=== PATIENT | female | born 1990 | race Caucasian/White ===

== ENCOUNTER 2020-04-26 12:48 | Emergency (ER) | payer BC, MEDICAID, OTHER, SELFPAY ==
--- NOTE | 2020-04-26 13:13 | EDM.PDOC ---
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 She said her LNMP was 2 weeks ago and she would be 10 days early for her next period. She says the bleeding is more heavy then normal. She may be even though she has been using protection. She has some mild cramping at times. She has no fever, chills, cough, congestion, chest pain, shortness of breath, abdominal pain, nausea or vomiting. She is . Onset: Gradual Duration: Day(s): Location: Reports: Pelvis Quality: Reports: Other (cramping) Severity: Mild Improves with: Reports: None Worsens with: Reports: None Associated Symptoms: Reports: No Other Symptoms - Related Data Allergies Allergy/AdvReac Type Severity Reaction Status Date / Time Sulfa (Sulfonamide Allergy Rash Verified 04/26/20 12:57 Antibiotics) Home Meds: Home Meds Albuterol Sulfate [Albuterol Sulfate Hfa] 2 puff INH Q4H PRN 04/26/20 [History] medroxyPROGESTERone [Provera] 10 mg PO DAILY #10 tab 04/26/20 [Rx] Past Medical History Genitourinary History: Reports: Other (See Below) 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: Psychiatric History: Reports: Depression - Past Surgical History Other HEENT Surgeries/Procedures: [place] teeth removal Social & Family History - Family History Family Medical History: Noncontributory - Tobacco Use Smoking Status *Q: Never Smoker - Caffeine Use Caffeine Use: Reports: Coffee - Recreational Drug Use Recreational Drug Use: No ED ROS GENERAL - Review of Systems Review Of Systems: See Below Constitutional: Reports: No Symptoms HEENT: Reports: No Symptoms Respiratory: Reports: No Symptoms Cardiovascular: Reports: No Symptoms Endocrine: Reports: No Symptoms GI/Abdominal: Reports: No Symptoms : Reports: Other (Vaginal bleeding and pelvic pain) ED EXAM, GI/ABD - Physical Exam Exam: See Below Exam Limited By: No Limitations General Appearance: Alert, No Apparent Distress Ears: Normal External Exam Nose: Normal Inspection Head: Atraumatic, Normocephalic Neck: Normal Inspection Respiratory/Chest: No Respiratory Distress, Lungs Clear, Normal Breath Sounds Cardiovascular: Regular Rate, Rhythm, No Edema, No Murmur GI/Abdominal Exam: Soft, Non-Tender, No Organomegaly, No Mass Extremities: Normal Inspection Neurological: Alert, Oriented Course - Vital Signs Last Recorded V/S: Last Vital Signs Temp 98.2 F 04/26/20 12:54 Pulse 99 04/26/20 12:54 Resp 16 04/26/20 12:54 BP 153/92 H 04/26/20 12:54 Pulse Ox 99 04/26/20 12:54 - Orders/Labs/Meds Orders: Active Orders 24 hr Category Date Time Status Pelvic Exam, Set Up [RC] ASDIRECTED Care 04/26/20 13:08 Active ABO/RH TYPE [BBK] Stat Lab 04/26/20 13:17 Received Labs: Laboratory Tests 04/26/20 04/26/20 Range/Units 13:17 13:17 WBC 8.91 (3.98-10.04) K/mm3 RBC 4.48 (3.98-5.22) M/mm3 Hgb 13.3 D (11.2-15.7) gm/dl Hct 39.5 (34.1-44.9) % MCV 88.2 (79.4-94.8) fl MCH 29.7 (25.6-32.2) pg MCHC 33.7 (32.2-35.5) g/dl RDW Std Deviation 47.1 H (36.4-46.3) fL Plt Count 326 (182-369) K/mm3 MPV 10.1 (9.4-12.3) fl Neut % (Auto) 63.5 (34.0-71.1) % Lymph % (Auto) 28.6 (19.3-51.7) % [place] % (Auto) 5.2 (4.7-12.5) % Eos % (Auto) 1.9 (0.7-5.8) Baso % (Auto) 0.6 (0.1-1.2) % Neut # (Auto) 5.66 (1.56-6.13) K/mm3 Lymph # (Auto) 2.55 (1.18-3.74) K/mm3 [place] # (Auto) 0.46 H (0.24-0.36) K/mm3 Eos # (Auto) 0.17 (0.04-0.36) K/mm3 Baso # (Auto) 0.05 (0.01-0.08) K/mm3 HCG, Qual Negative (NEGATIVE) - Re-Assessments/Exams Free Text/Narrative Re-Assessment/Exam: 04/26/20 13:13 I will do an HCG, labs and a pelvic exam. 04/26/20 14:02 Her CBC looks good. Her HCG is negative. I was going to do a pelvic exam but she did not want that done. I will get her on some provera for the bleeding. Departure - Departure Time of Disposition: 14:05 Disposition: Home, Self-Care 01 Condition: Good Clinical Impression: Vaginal bleeding - Discharge Information *PRESCRIPTION DRUG MONITORING PROGRAM REVIEWED*: Not Applicable *COPY OF PRESCRIPTION DRUG MONITORING REPORT IN PATIENT LIAN: Not Applicable Prescriptions: medroxyPROGESTERone [Provera] 10 mg PO DAILY #10 tab Referrals: Gladis Zapata BOILER TENDER [Primary Care Provider] - 1 Week Forms: ED Department Discharge Additional Instructions: Take the provera daily for 10 days. Please return if the bleeding is worse. Follow up with your doctor. Sepsis Event Note (ED) - Evaluation Sepsis Screening Result: No Definite Risk - Focused Exam Vital Signs: Vital Signs Temp Pulse Resp BP Pulse Ox 04/26/20 12:54 98.2 F 99 16 153/92 H 99 - My Orders Last 24 Hours: My Active Orders 04/26/20 13:08 Pelvic Exam, Set Up [] ASDIRECTED 04/26/20 13:17 ABO/RH TYPE [BBK] Stat - Assessment/Plan Last 24 Hours: My Active Orders 04/26/20 13:08 Pelvic Exam, Set Up [RC] ASDIRECTED 04/26/20 13:17 ABO/RH TYPE [BBK] Stat
== END 2020-04-26 14:15 | disposition home or self-care (01) ==
LOC: JD.ED 12:48
DX: N93.9 Abnormal uterine and vaginal bleeding, unspecified (principal); Z88.2 Allergy status to sulfonamides
CPT/HCPCS: 36415; 84703; 85025; 86900; 86901; 99283; 99284

== ENCOUNTER 2020-05-30 07:37 | Emergency (ER) | payer MEDICAID ==
--- NOTE | 2020-05-30 08:05 | EDM.PDOC ---
ED HPI GENERAL MEDICAL PROBLEM - General Chief Complaint: Genitourinary Problem Stated Complaint: BLOOD IN URINE Time Seen by Provider: 05/30/20 07:57 - History of Present Illness INITIAL COMMENTS - FREE TEXT/NARRATIVE: 30-year-old female presents to the emergency room with blood in her urine. On Monday now 3 days ago the patient had some discomfort with urination. Yesterday she noticed bright red blood in her urine. This has improved but is still pinkish in color. She is certain is not vaginal bleeding however she is late for her period. A month ago the patient was treated with medroxyprogesterone. She is followed up with her primary provider who is discussing starting her on control pills. The patient had some leftover doxycycline and took 1 of these. 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 Denies: Flank Pain ED EXAM, GI/ABD - Physical Exam Exam: See Below Exam Limited By: No Limitations General Appearance: Alert, No Apparent Distress Respiratory/Chest: No Respiratory Distress, Lungs Clear, Normal Breath Sounds Cardiovascular: Regular Rate, Rhythm, No Edema, No Murmur GI/Abdominal Exam: Normal Bowel Sounds, Soft, Other (She has a mild discomfort in the suprapubic area otherwise abdominal exam is unremarkable). No: Guarding, Rigid, Rebound Back Exam: Normal Inspection. No: CVA Tenderness (L), CVA Tenderness (R) Course - Vital Signs Last Recorded V/S: Last Vital Signs Temp 36.3 C 05/30/20 07:52 Pulse 100 05/30/20 07:52 Resp 13 05/30/20 07:52 BP 157/82 H 05/30/20 07:52 Pulse Ox 99 05/30/20 07:52 - Orders/Labs/Meds Orders: Active Orders 24 hr Category Date Time Status CULTURE URINE [RM] Stat Lab 05/30/20 08:31 Ordered CULTURE URINE [RM] Urgent Lab 05/30/20 07:50 Stop Req Labs: Laboratory Tests 05/30/20 05/30/20 Range/Units 07:50 07:50 Urine Color [place] H (Yellow) Urine Appearance Slt cloudy H (Clear) Urine pH 6.5 (5.0-8.0) Ur Specific Era 1.015 (1.005-1.030) Urine Protein 2+ H (Negative) Urine Glucose (UA) Negative (Negative) Urine Ketones Negative (Negative) Urine Occult Blood 3+ H (Negative) Urine Nitrite Negative (Negative) Urine Bilirubin Negative (Negative) Urine Urobilinogen 0.2 (0.2-1.0) Ur Leukocyte Esterase 3+ H (Negative) Urine RBC Too numerous to cnt H (0-5) /hpf Urine WBC >100 H (0-5) /hpf Ur Squamous Epith Cells 0-5 (0-5) /hpf Urine Bacteria Moderate H (FEW) /hpf Urine Mucus Not seen (FEW) /hpf Urine HCG, Qual Negative (NEGATIVE) - Re-Assessments/Exams Free Text/Narrative Re-Assessment/Exam: 05/30/20 08:41 UA can be suggestive of developing UTI or hemorrhagic cystitis. Urine culture is been set up. It is unclear how the doxycycline she took has affected the situation she will be empirically started on Macrobid and a urine culture is set up. I did discuss this with the lab. 05/30/20 09:00 hCG is negative will discharge Departure - Departure Time of Disposition: 09:00 Disposition: Home, Self-Care 01 Clinical Impression: UTI, Urinary tract infectious disease - Discharge Information Prescriptions: Nitrofurantoin Monohyd/M-Cryst [Macrobid 100 mg Capsule] 100 mg PO BID #14 capsule Referrals: Gladis Zapata NP [Primary Care Provider] - Forms: ED Department Discharge Additional Instructions: Return to the emergency room with any questions problems or worsening symptoms. Take the antibiotics as directed. You have been started on Macrobid, this is an antibiotic for urinary tract infections take them until they are all gone. Follow-up with your regular healthcare provider 3 or 4 days after you finish the antibiotics. Sepsis Event Note (ED) - Evaluation Sepsis Screening Result: No Definite Risk - Focused Exam Vital Signs: Vital Signs Temp Pulse Resp BP Pulse Ox 05/30/20 07:52 36.3 C 100 13 157/82 H 99 - My Orders Last 24 Hours: My Active Orders 05/30/20 07:50 CULTURE URINE [RM] Urgent 05/30/20 08:31 CULTURE URINE [RM] Stat - Assessment/Plan Last 24 Hours: My Active Orders 05/30/20 07:50 CULTURE URINE [RM] Urgent 05/30/20 08:31 CULTURE URINE [RM] Stat
== END 2020-05-30 09:12 | disposition home or self-care (01) ==
LOC: JD.ED 07:37
DX: N39.0 Urinary tract infection, site not specified (principal); R31.9 Hematuria, unspecified; Z88.2 Allergy status to sulfonamides
CPT/HCPCS: 81001; 81025; 87086; 87186; 99283

== ENCOUNTER 2022-06-10 16:45 | Emergency (ER) | payer MEDICAID, OTHER ==
[2022-06-10] MEDS ORDERED: Sodium Chloride 0.9% 10 ML Syringe FLUSH PRN (17:29)
[2022-06-10 18:15] LABS: ESTIMATED GFR 87 mL/min (>60)
== END 2022-06-10 19:00 | disposition home or self-care (01) ==
LOC: JD.ED 16:45
DX: R07.89 Other chest pain (principal); Z88.2 Allergy status to sulfonamides; Z79.899 Other long term (current) drug therapy
CPT/HCPCS: 36415; 71045; 71045-26; 80053; 83735; 83880; 84484; 85025; 85379; 85610; 85730; 93005; 93010; 99284; 99285

== ENCOUNTER 2023-04-06 05:11 | Emergency (ER) | payer OTHER | END 2023-04-06 06:16 | disposition home or self-care (01) | LOC: JD.ED 05:11 | DX: S93.401A Sprain of unspecified ligament of right ankle, initial encounter (principal); Z88.1 Allergy status to other antibiotic agents; X50.1XXA Overexertion from prolonged static or awkward postures, initial encounter | CPT/HCPCS: 73610-26-RT; 73610-RT; 99283 ==